=== PATIENT | male | born 1965 | race Caucasian/White ===

== ENCOUNTER 2016-11-15 13:44 | Emergency (ER) | payer OTHER ==
[~2016-11-15] VITALS: Ht 182.9 cm; Wt 82.1 kg
[~2016-11-15 13:44] MED LIST: AMOXICILLIN875 MG PO; BACTRIM DS1 TAB PO; CLARITIN10 MG PO; FISH OIL1 CAP PO; FLA500 PO; FLONS; FLOVENT HF0.044 MG/1 IH; GLIPIZIDE2.5 M1 PO; GUIAFENESIN PO; LAC PO; LEVAQUIN750 MG PO; LEVOFLOXACIN500 M1 PO; MEDDP PO; METFORMIN HCL850 MG PO; MYCLUD SS; OMEPRAZOLE D/R20 M1 PO; PRA40 PO; PRAVASTATIN40 M1 PO; PRILOSEC40 MG PO; PROMETHAZINE12.5 M4; PROVENTIL0.09 MG/A1 IH; PSE PO; QVAR0.04 MG/Ac IH; REG5 PO; STRIBILD1 TAB PO; TERBINAFINE250 MG PO; VENTOLIN H0.09 MG/A1 INH
[2016-11-15 16:49] VITALS: BP 135/85
== END 2016-11-15 16:49 | disposition home or self-care (01) ==
LOC: ED 13:44
DX: L02.414 Cutaneous abscess of left upper limb (principal)

== ENCOUNTER 2017-08-24 13:20 | Emergency (ER) | payer OTHER ==
[~2017-08-24] VITALS: Ht 182.9 cm; Wt 73.7 kg
[2017-08-24 14:29] LABS: UA SPECIFIC GRAVITY >=1.030 (1.005-1.035); microscopic required? YES; urine erythrocyte NEGATIVE (NEGATIVE)
[2017-08-24 14:31] LABS: BASOPHIL % 0.3 % (0-2); PLATELET COUNT 144 x10^3mcL (130-400); RED CELL DISTRIBUTION WIDTH 12.9 % (11.5-14.5)
[2017-08-24 14:40] LABS: CALCIUM 8.8 mg/dL (8.5-10.1); CARBON DIOXIDE 21.4 mmol/L (21-32); CHLORIDE SERUM 102 mmol/L (98-107); GFR1 > 60 mL/min; GLUCOSE SERUM 250 mg/dL (74-106); SODIUM SERUM 136 mmol/L (136-145)
[2017-08-24 14:45] LABS: ALBUMIN 3.8 g/dL (3.4-5.0); ALKALINE PHOSPHATASE 60 U/L (46-116); ALT/SGPT 73 U/L (16-63); AST/SGOT 35 U/L (15-37); BILIRUBIN TOTAL 0.6 mg/dL (0.20-1.00); TOTAL PROTEIN, SERUM 7.2 g/dL (6.4-8.2)
[2017-08-24 15:56] VITALS: BP 136/87
== END 2017-08-24 15:56 | disposition home or self-care (01) ==
LOC: ED 13:20
PROVIDERS: Emergency Medicine
DX: E11.9 Type 2 diabetes mellitus without complications (principal)
CPT/HCPCS: 82962; J7030

== ENCOUNTER 2017-08-26 12:01 | Emergency (ER) | payer OTHER ==
[~2017-08-26] VITALS: Ht 182.9 cm; Wt 75.3 kg
[2017-08-26 12:10] VITALS: Ht 182.9 cm; Wt 75.3 kg
[2017-08-26 12:52] LABS: BASOPHIL % 0.3 % (0-2); PLATELET COUNT 148 x10^3mcL (130-400); RED CELL DISTRIBUTION WIDTH 12.9 % (11.5-14.5)
[2017-08-26 13:01] LABS: CALCIUM 9.5 mg/dL (8.5-10.1); CARBON DIOXIDE 24.5 mmol/L (21-32); CHLORIDE SERUM 101 mmol/L (98-107); CREATININE SERUM 1.1 mg/dL (0.7-1.3); GFR1 > 60 mL/min; GLUCOSE SERUM 295 mg/dL (74-106); POTASSIUM SERUM 4.2 mmol/L (3.5-5.1); SODIUM SERUM 138 mmol/L (136-145)
[2017-08-26 13:05] LABS: ALBUMIN 4.2 g/dL (3.4-5.0); ALKALINE PHOSPHATASE 67 U/L (46-116); ALT/SGPT 101 U/L (16-63); AST/SGOT 51 U/L (15-37); BILIRUBIN TOTAL 0.94 mg/dL (0.20-1.00); LIPASE 298 IU/L (73-393); TOTAL PROTEIN, SERUM 7.9 g/dL (6.4-8.2)
[2017-08-26 14:40] VITALS: BP 110/72
== END 2017-08-26 14:40 | disposition home or self-care (01) ==
LOC: ED 12:01
PROVIDERS: Emergency Medicine
DX: E11.65 Type 2 diabetes mellitus with hyperglycemia (principal); J45.909 Unspecified asthma, uncomplicated; Z88.5 Allergy status to narcotic agent
CPT/HCPCS: 36415; 82962; J1815; J7030; Q0162

== ENCOUNTER 2018-11-17 12:03 | Emergency (ER) | payer OTHER ==
[~2018-11-17] VITALS: Ht 180.3 cm; Wt 81.6 kg
[2018-11-17 12:09] VITALS: BP 136/87; Ht 180.3 cm; Wt 81.6 kg
== END 2018-11-17 13:50 | disposition home or self-care (01) ==
LOC: ED 12:03
DX: H00.014 Hordeolum externum left upper eyelid (principal); S66.912A Strain of unspecified muscle, fascia and tendon at wrist and hand level, left hand, initial encounter; J45.909 Unspecified asthma, uncomplicated; E11.9 Type 2 diabetes mellitus without complications; Z88.5 Allergy status to narcotic agent; W01.0XXA Fall on same level from slipping, tripping and stumbling without subsequent striking against object, initial encounter; Y93.89 Activity, other specified; Y92.89 Other specified places as the place of occurrence of the external cause; Y99.8 Other external cause status